=== PATIENT | female | born 1995 | race Caucasian/White ===

== ENCOUNTER 2017-11-03 12:07 | Emergency (ER) | payer OTHER ==
[~2017-11-03] VITALS: Ht 162.6 cm; Wt 61.1 kg
[~2017-11-03 12:07] MED LIST: LORA-741 PO; SERT25TA PO; SPR28 PO
[2017-11-03 12:12] VITALS: TEMP 36.8; Ht 162.6 cm; Wt 61.1 kg
--- NOTE | 2017-11-03 13:34 | EMERGENCY ROOM VISIT NOTE ---
ED Visit Note First contact with patient: 12:35 CHIEF COMPLAINT: Possible retained tampon 4 days HISTORY OF PRESENT ILLNESS: Patient is a 22-year-old female who presents the emergency department for a possible stuck tampon. Patient is on oral contraceptives. She is not presently sexually active. She states that last week, she was busy and missed a few doses of her oral contraceptives, triggering a withdrawal bleed on Monday, 10/29. She states that Monday evening she believed that she placed a tampon before she went to bed, on Monday morning she states that she could not find it and thought that she may have not put 1 and so she placed another tampon. She later removed that tampon and while placing another one felt resistance and thought there was a stuck tampon. She checked but she could not feel anything. She states that her menstrual bleeding has stopped. She denies any itching or vaginal discharge. She denies abdominal pain, nausea, or vomiting. She denies any urinary symptoms. REVIEW OF SYSTEMS: Review of systems as per HPI. All other systems reviewed were negative. 10 systems reviewed. PMH: Electronic medical records are reviewed and summarized as above/below. See Problem List. SOCIAL HISTORY: Patient is a college student who lives with roommates. Nonsmoker, social EtOH. PHYSICAL EXAM: Vital Signs: Reviewed Nurse's notes. CONSTITUTIONAL: Patient is a well-appearing 22-year-old female who is awake and alert and in no acute distress. PELVIC EXAM: VAGINA: Mucoid discharge. CERVIX: Closed, pink, nontender. VULVA: No ulcers, vesicles, or atrophy. A nurse was present as a enamel shader during the examination. EMERGENCY DEPARTMENT COURSE: Speculum was placed and vaginal vault was completely examined. There was some mucoid discharge from the cervix which was cleared with a cotton tip applicator. The entire cul-de-sac was examined visually, and then using a digital exam and the vagina was completely clear. There was no retained foreign body. The patient was reassured. Problem List Medical Problems: (1) Concussion Status: Resolved (2) Fall Status: Resolved Current/Historical Medications Scheduled Ethinyl Estrad/Norgestimate (Sprintec 28), 1 TAB PO DAILY Sertraline (Zoloft), 25 MG PO DAILY Scheduled PRN Lorazepam (Ativan), 0.5 MG PO DAILY PRN for Anxiety Allergies Coded Allergies: No Known Allergies (Unverified , 11/03/17) Vital Signs Date Time Temp Pulse Resp B/P (MAP) Pulse Ox O2 Delivery O2 Flow Rate FiO2 11/03/17 13:39 67 16 106/64 100 11/03/17 12:12 36.8 81 17 105/64 98 Room Air Departure Information Impression Primary Impression: Possible vaginal foreign body Referrals No Doctor, Assigned (PCP) Patient Instructions [facility] Additional Instructions Return to the ED or follow up with [facility] as needed.
[2017-11-03 13:39] VITALS: BP 106/64; PULSE 67; O2SAT 100
== END 2017-11-03 13:40 | disposition home or self-care (01) ==
LOC: C.EDB 12:09 → C.EDD 13:40
DX: Z71.1 Person with feared health complaint in whom no diagnosis is made (principal); Z79.3 Long term (current) use of hormonal contraceptives